=== PATIENT | female | born 1940 | race Caucasian/White ===

== ENCOUNTER 2018-10-14 23:04 | Inpatient (IN) | payer OTHER, BC ==
[2018-10-14] MEDS ORDERED: NS 1,000 ML IV ONE (23:07)
[2018-10-14] MEDS ORDERED: IOPAMIDOL (ISOVUE 370) 100 ML BTL IV ONE (23:12)
[2018-10-14] MEDS ORDERED: ALTEPLASE 100 MG/100 ML VIAL IV ONE ×2 (23:14→23:38)
--- NOTE | 2018-10-14 23:19 | EDPHY ---
H & P Time Seen by Provider: 10/14/18 23:17 HPI/ROS: HPI CHIEF COMPLAINT: Word finding difficulties, confusion, left-sided weakness onset 7:30 p.m. It is now 11:15 p.m. HISTORY OF PRESENT ILLNESS: This is a very pleasant 77-year-old female she arrives to the emergency room with family by private vehicle she presents emergency room with word-finding difficulties, confusion and left-sided weakness. This started approximately 730 tonight where they noticed at dinner she was having hard time picking up her fork and knocked her glass of wine over. She seemed confused and had word-finding difficulties. They became concerned and brought her to the emergency room at 11:15 a.m. At night. She arrives to ER room 2. Upon arrival I did seeing Greet her she has left- sided weakness compared to the right side, additionally word-finding difficulty , and appears to be looking to the right. She has noted be hypertensive upon arrival. and daughter at bedside who brought her in. She is not on any blood thinners. Stroke alert has been activated. I have asked for tPA to be mixed. Past Medical History: Hypertension, hyperlipidemia, polymyalgia Past Surgical History: No recent surgery Social History: Lives in [place] visiting her daughter here. at bedside. Family History: Noncontributory ROS REVIEW OF SYSTEMS: 10 Systems were reviewed and negative with the exception of the elements mentioned in the history of present illness. Exam Constitutional nontoxic, triage nursing summary reviewed, vital signs reviewed , awake/alert. Eyes normal conjunctivae and sclera, EOMI, PERRLA. HENT normal inspection, atraumatic, moist mucus membranes, no epistaxis, neck supple/ no meningismus, no raccoon eyes. Respiratory clear to auscultation bilaterally, normal breath sounds, no respiratory distress, no wheezing. Cardiovascular rate normal, regular rhythm, no murmur, no edema, distal pulses normal. Gastrointestinal soft, non-tender, no rebound, no guarding, normal bowel sounds, no distension, no pulsatile mass. Genitourinary no CVA tenderness. Musculoskeletal no midline vertebral tenderness, full range of motion, no calf swelling, no tenderness of extremities, no meningismus, good pulses, neurovascularly intact. Skin pink, warm, & dry, no rash, skin atraumatic. Neurologic left-sided weakness left upper extremity weakness left lower extremity weakness, word finding difficulty, confusion Psychiatric normal mood/affect. Heme/Lymph/Immune no lymphadenopathy. Differential Diagnosis: Includes but is not limited to in a particular order ischemic CVA, intracranial bleed, ACS, hypertensive emergency Medical Decision Making: Plan for this patient she will go directly to CT for CT head without contrast and CT angiogram head and neck for stroke. Stroke alert. Mix tPA. Re-evaluation: NIHSS stroke scale upon arrival 8. NIH Stroke Scale/Score (NIHSS) from [employer] on 10/14/2018 All calculations should be rechecked by clinician prior to use RESULT SUMMARY: 8 points NIH Stroke Scale INPUTS: 1A: Level of consciousness > 0 = Alert; keenly responsive 1B: Ask month and age > 2 = 0 questions right 1C: 'Blink eyes' & 'squeeze hands' > 0 = Performs both tasks 2: Horizontal extraocular movements > 0 = Normal 3: Visual hong > 0 = No visual loss 4: Facial palsy > 0 = Normal symmetry 5A: Left arm motor drift > 2 = Drift, hits bed 5B: Right arm motor drift > 0 = No drift for 10 seconds 6A: Left leg motor drift > 2 = Drift, hits bed 6B: Right leg motor drift > 0 = No drift for 5 seconds 7: Limb Ataxia > 0 = No ataxia 8: Sensation > 0 = Normal; no sensory loss 9: Language/aphasia > 1 = Mild-moderate aphasia: some obvious changes, without significant limitation 10: Dysarthria > 1 = Mild-moderate dysarthria: slurring but can be understood 11: Extinction/inattention > 0 = No abnormality CT scan head without contrast called to me by [facility] negative for acute bleed negative for acute stroke. 2338: Patient is back from CT. The CT scan head without contrast shows no evidence of blood. Neurology Iraj Hong Dr.. Has consult and discussed the case with the patient. As well as the and daughter at bedside. Recommends giving IV tPA. The patient's blood pressure noted to be high. I have ordered 10 mg IV hydralazine additionally will give nicardipine a blood pressure stays high. Current blood pressure 189/102. After long discussion with Neurology with Isreal Merino, as well as the , patient, daughter at bedside we have all agreed that the patient will get tPA. They understand the risk of tPA including bleeding. They are comfortable this. CT angiogram head and neck called to me negative for large vessel occlusion by Dr. Pires. EKG interpretation by me on record in [employer] system. Impression time of EKG 2344, sinus tach 107 without any signs of acute ischemia no ST elevation no ST depression no T-wave abnormalities. Hospitalist service consult Dr. Barrera. Blood pressure currently 174/93. Critical Care: Total Critical Care Time Spent Managing this Patient: 85 Minutes. This time was spent Exclusively with this patient. This Care was exclusive of procedures. The Organ System/life at risk was CVA neurological This Patient was in Critical Condition because CVA, left-sided weakness, confusion, word finding difficulty status post tPA. Source: Patient, Family Constitutional: Initial Vital Signs Temperature (C) 36.7 C 10/14/18 23:15 Heart Rate 108 H 10/14/18 23:15 Respiratory Rate 20 10/14/18 23:15 Blood Pressure 195/118 H 10/14/18 23:15 O2 Sat (%) 93 10/14/18 23:15 O2 Delivery Mode Room Air O2 (L/minute) 2 Allergies/Adverse Reactions: No Known Allergies Allergy (Verified 10/15/18 09:19) Home Medications: Medication Instructions Recorded Atorvastatin Calcium [Lipitor 20 20 mg PO DAILY 10/14/18 mg (*)] Gabapentin [Neurontin 300 MG (*)] 900 mg PO HS 10/14/18 Hydrochlorothiazide [HCTZ (*)] 12.5 mg PO DAILY 10/14/18 Losartan Potassium 100 mg PO DAILY 10/14/18 glipiZIDE XL [Glucotrol Xl 2.5 mg 2.5 mg PO BID 10/14/18 (*)] metFORMIN HCL [Metformin HCl ER] 500 mg PO QID 10/14/18 C/E/Zn/Cu/OM3/DHA/EPA/LUT/ZEAX 1 each PO DAILY 10/15/18 [Preservision Areds 2 Softgel] Cholecalciferol Vit D3 [Vitamin D3 1,000 units PO DAILY 10/15/18 (*)] Estring 1 each VG Q90D 10/15/18 Famotidine [Pepcid 20 MG (*)] 20 mg PO DAILY PRN 10/15/18 Naproxen Sodium [Aleve 220 MG (*)] 220 mg PO BID PRN 10/15/18 Medical Decision Making - Data Points Laboratory Results: Laboratory Results 10/14/18 23:15 10/14/18 23:15 Medications Given: Acetaminophen (Tylenol) 650 mg PO Q4HRS PRN PRN Reason: Pain, Mild/Fever, Can Take PO Stop: 04/13/19 00:46 Last Admin: 10/15/18 14:53 Dose: 650 mg Nicardipine/Sodium Chloride (Cardene 0.1 Mg/Ml (Premix)) 200 mls @ 0 mls/hr IV CONT MIC; Titrate PRN Reason: Protocol Stop: 04/13/19 00:59 Last Admin: 10/15/18 02:11 Dose: 200 mls Insulin Human Lispro (Humalog Lispro) 0 unit SC TIDMEAL MIC PRN Reason: Protocol Stop: 04/13/19 17:59 Last Admin: 10/15/18 17:37 Dose: 2 units Discontinued Medications Alteplase, Recombinant (Activase) 51.192 mg 0.81 mg/kg (51.192 mg) IV ONCE ONE PRN Reason: Protocol Stop: 10/14/18 23:39 Last Admin: 10/14/18 23:45 Dose: 51.192 mg Alteplase, Recombinant (Activase) 5.688 mg 0.09 mg/kg (5.688 mg) IV ONCE ONE PRN Reason: Protocol Stop: 10/14/18 23:39 Last Admin: 10/14/18 23:44 Dose: 5.688 mg Fentanyl (Sublimaze) 25 mcg IVP EDNOW ONE Stop: 10/15/18 00:32 Last Admin: 10/15/18 02:40 Dose: 25 mcg Hydralazine HCl (Apresoline) 10 mg IVP EDNOW ONE Stop: 10/14/18 23:38 Last Admin: 10/14/18 23:48 Dose: 10 mg Sodium Chloride (Ns) 1,000 mls @ 0 mls/hr IV ONCE ONE; Wide Open PRN Reason: Protocol Stop: 10/14/18 23:08 Last Admin: 10/14/18 23:50 Dose: 1,000 mls Nicardipine/Sodium Chloride (Cardene 0.1 Mg/Ml (Premix)) 200 mls @ 0 mls/hr IV CONT MIC; Titrate PRN Reason: Protocol Stop: 04/12/19 23:44 Last Admin: 10/14/18 23:48 Dose: 200 mls Point of Care Test Results: Chemistry 10/14/18 23:21 POC Sodium 141 mEq/L mEq/L (135-145) POC Potassium 4.4 mEq/L mEq/L (3.3-5.0) POC Chloride 103 mEq/L mEq/L (97-110) POC BUN 23 mg/dL mg/dL (7-23) POC Creatinine 1.1 mg/dL H mg/dL (0.6-1.0) POC Glucose 158 mg/dL H mg/dL (70-100) ISTAT H&H 10/14/18 23:21 POC Hgb 11.2 gm/dL L gm/dL (12.6-16.3) POC Hct 33 % L % (38-47) Departure - Departure Disposition: [facility] Inpatient Acute Clinical Impression: CVA (cerebral vascular accident) Qualifiers: CVA mechanism: unspecified Qualified Code(s): I63.9 - Cerebral infarction, unspecified Condition: Critical
[2018-10-14 23:24] LABS: PLATELET COUNT 542 10^3/uL (150-400)
[2018-10-14 23:32] LABS: INR 0.92 (0.83-1.16); PROTIME(PATIENT) 12.6 SEC (12.0-15.0)
[2018-10-14] MEDS ORDERED: hydrALAZINE 20 MG/ML VIAL ONE (23:35)
[2018-10-14] MEDS ORDERED: hydrALAZINE 20 MG/ML VIAL IVP ONE (23:37)
[2018-10-14] MEDS ORDERED: ALTEPLASE 1 MG/ML SYR IV ONE (23:38)
[2018-10-14] MEDS ORDERED: niCARdipine/NACL 200 ML IV SCH (23:45)
[2018-10-15] MEDS ORDERED: fentaNYL 100 MCG/2 ML INJ IVP ONE (00:31)
[2018-10-15] MEDS ORDERED: fentaNYL 100 MCG/2 ML INJ ONE (00:32)
[2018-10-15] MEDS ORDERED: ONDANSETRON DISINTEGRATING 4 MG TAB PO PRN (00:47)
[2018-10-15] MEDS ORDERED: ONDANSETRON 4 MG/2 ML VIAL IVP PRN (00:47)
[2018-10-15] MEDS ORDERED: ACETAMINOPHEN 325 MG TAB PO PRN (00:47)
[2018-10-15] MEDS ORDERED: niCARdipine/NACL 200 ML IV SCH (01:00)
[2018-10-15] MEDS ORDERED: NS 1,000 ML IV SCH (01:00)
--- NOTE | 2018-10-15 06:11 | GHP ---
DATE OF ADMISSION: 10/14/2018 PRIMARY CARE PHYSICIAN: Out of state in [place]. SOURCE: Patient currently has aphasia, she is quite fatigued, and declines to answer questions. Her and daughter at bedside supplement details. EMR was reviewed and case discussed with ED provider. CHIEF COMPLAINT: Left-sided weakness and aphasia. HISTORY OF PRESENT ILLNESS: This is a pleasant 77-year-old female with past medical history significant for polymyalgia rheumatica, not currently on chronic steroid therapy, diabetes, noninsulin-dependent, and hypertension, who presents to the emergency department today with her and daughter several hours after patient began to exhibit some clumsiness on the left side. The patient was at dinner at approximately 7:30 p.m., when it was noted that she was dropping her wine glass and having some mild weakness on the left side. They returned home from dinner. They returned home to the [facility] where they are staying while they are visiting their daughter, and the patient was trying to act her to change the batteries out of her headphones, but she was not able to verbalize what she needed. The patient appeared to not be able to find the words per the . He called their primary care provider in [place], and they advised them to go to the emergency department. Stroke alert was called overhead and patient was noted to have some left-sided deficits and aphasia. [facility] was consulted and after discussion with family, was offered tPA. Risks and benefits were reviewed, and patient and the family agreed. The patient also was noted to have elevated blood pressure upon arrival of 195/118 up to a max of 222/115, with a heart rate in the 100s. She was given a dose of hydralazine with improvement in blood pressure and subsequently placed on nicardipine drip. Stat CT, CTA of head and neck were negative for any evidence of acute bleed, edema, or arterial occlusion. The patient did receive tPA and transferred to the ICU where I evaluated the patient after she just returned from a stat CT due to acute worsening of her left-sided weakness and new facial drooping. Patient with increasing anxiety and still continues to have aphasia. She is still oriented to just her name, with difficulties expressing additional answers to questions. reports that normally patient, due to her polymyalgia, will have increasing fatigue over the course of the day and particularly in the evening. The patient has been intermittently falling asleep during my interview, and he states that this is normal for her. She continues to have some left-sided weakness. She initially refused to allow me to do a basic physical exam, but was subsequently agreeable. The patient is endorsing some chills, but has not had any fever. REVIEW OF SYSTEMS: Limited due to patient's aphasia, but per family, no other symptoms or complaints reported to them by the patient, except as noted above in HPI. HOME MEDICATIONS: As per EMR, metformin, losartan, hydrochlorothiazide, glipizide, gabapentin, atorvastatin. PAST MEDICAL HISTORY: Significant for: 1. Diabetes type 2, treated with oral medications metformin and glipizide. 2. Chronic pain due to polymyalgia rheumatica. Patient is not currently on any chronic daily steroids. She was previously, but this was tapered off some time ago. 3. Hyperlipidemia. Patient is on atorvastatin. PAST SURGICAL HISTORY: Family denies. FAMILY HISTORY: Reports that patient's mother suddenly in her early 70s, unclear if this was due to stroke or [place]. SOCIAL HISTORY: Patient lives with her in [place], [place]. They are here visiting their daughter in [place]. Normally, patient is able to complete her ADLs independently. Patient without any recent history of tobacco, but she did smoke many years ago. She drinks a glass of wine a week. She uses CBD cream topically, but no known marijuana use. CODE STATUS: Full. PHYSICAL EXAM: VITAL SIGNS: Upon arrival to the emergency department, blood pressure 195/118, increased to 222/115, heart rate 100s initially in the ED, increased up to 120s, worse with movement while I am at bedside up to 122, sinus tachycardia, respiratory rate 16, O2 saturation 93% on room air, with temperature of 36.7. CURRENT SET OF VITAL SIGNS: Blood pressure 140/88, heart rate 119, respiratory rate 18, O2 sat is 100% on 2 L by nasal cannula. GENERAL : No acute distress. Peasant, elderly lady is lying on bed asleep. She does awaken and open her eyes to name. Exam is slightly limited due to patient with significant fatigue, but she does make attempts to participate in the exam. is at bedside as well as daughter. HEAD: Normocephalic, atraumatic. EYES: Extraocular muscle testing is limited due to patient's cooperation. She closes her eyes when I attempt to evaluate with light. She does not appear to have a gaze deviation, but again exam is limited. ENT: Mucous membranes appear moist. Dentition in fair condition. No nasal discharge. NECK: Supple. Trachea midline. CV: Tachycardic, regular. No murmurs, rubs, or gallops appreciated. RESPIRATORY: Lungs are clear to auscultation bilaterally. No wheezes, rales, or rhonchi. Unlabored breathing. ABDOMEN: Obese, soft, nontender to palpation. No rebound, guarding, or masses appreciated. Hypoactive bowel sounds. : Patient with some bladder discomfort and full bladder. She is complaining of urinary retention. EXTREMITIES: Patient without any cyanosis, clubbing, or edema appreciated. She is able to move her upper and lower extremities independently; however, when prompted for the neurologic exam, patient is not able to real property appraiser; however, she does flex her arm independently when she is trying to go to sleep. She is able to move her lower extremities, but she does complain of diffuse joint pain with any kind of movement. NEUROLOGIC: Patient with a faint left facial droop and nasolabial fold flattening. No tongue deviation. Left-sided weakness is present, but again exam is slightly made difficult due to patient's ability to cooperate. She does not grasp with her left fingers or thumb, or move her left extremity. When prompted; however, when she goes to turn, she is able to flex her left arm at the elbow. She has notable aphasia. With this in consideration , she is oriented to her name. PSYCH: Patient is quite anxious, particularly with any movement. She complains of diffuse joint pain. She is quite fatigued and intermittently cooperative as noted above. LABORATORY STUDIES: 1. WBC is 11.2, H and H are 9.9 and 31.2, MCV of 81.0, platelet count is 542. No bands. PT 12.6, INR 0.92. 2. Sodium is 138, potassium 4.7, chloride 104, CO2 is 23, anion gap 11, BUN is 25, creatinine is 1.1, GFR of 48, glucose 156, calcium is 9.5. A1c and lipid panel pending. Point of care troponin is negative. 3. EKG, reviewed myself, showing sinus tachycardia, borderline ST depression in the anterolateral leads. QTc is 503. Patient with small nonpathologic Q- waves in multiple leads, inferolateral leads. 4. CT head/CT head and neck negative for any acute findings. Patient with a torturous cervical vasculature, but no flow-limiting stenosis. 5. Repeat CT head was obtained shortly after patient arrived to the ICU due to a new facial droop and more prominent left-sided extremity weakness. Discussed with Dr. Chaney, Radiology, and CT head is reported to be normal. ASSESSMENT AND PLAN: Pleasant 77-year-old female with a past medical history significant for hypertension, diabetes mellitus 2, hyperlipidemia, polymyalgia rheumatica, who presents to the emergency department today with several hours following onset of left-sided weakness and new aphasia. 1. Acute cerebrovascular accident, status post tPA. Patient without significant improvement in her symptoms at this time. She did have a mild worsening of her symptoms, but she was also increasingly fatigued and just received fentanyl. [facility] was consulted from the emergency department. Patient did receive tPA. She has been admitted to the ICU for close monitoring of her symptoms post tPA. Stroke protocol is in place. She continues to have some aphasia and left lower facial drooping. She did pass a bedside swallow in the ER, but did not have at that time any left facial drooping, so we will make patient n.p.o. while awaiting Speech Therapy evaluation. Inpatient Neurology consulted for additional recommendations. We will obtain an MRI, without contrast, in the morning. The patient's daughter and were updated on the plan for tonight. plans to stay in the room this evening. 2. Aphasia. 3. Left-sided weakness. Plan as noted above. 4. Accelerated hypertension. The patient received a dose of hydralazine. Subsequently, on nicardipine drip which will be continued to maintain blood pressures of less than 180. Initially, and daughter were unaware of patient's diagnosis of hypertension. Review of her home medications reveals that she is on several antihypertensives. 5. Renal insufficiency. It is unclear at this time if this is patient's baseline or if this is new. The patient will receive some gentle IV fluid hydration once her symptoms of urinary retention have improved. 6. Urinary retention. Suspect related to patient receiving low dose of fentanyl in the emergency department. She has been able to void small amounts, but has increasing residual on bladder scan. Patient without a Martinez catheter at this time, status post tPA. We will try to utilize gravity. Have patient sit up forward on bed to try to void on a bed lr. She is on bedrest pending 24 hours following tPA administration. 7. Anemia. Baseline again is unknown. The patient without any evidence of active bleeding at this time. Vital signs are stable as far as blood pressure. We will continue to monitor her H and H. Type and screen has been ordered. 8. Chronic medical issues. a.. Diabetes mellitus 2. Blood sugar is minimally elevated. We will continue to monitor. She is not on insulin at baseline. Holding metformin in setting of kidney insufficiency and glipizide in setting of n.p.o. status. Checking A1c. b. Hyperlipidemia. Checking a lipid panel. c. Polymyalgia rheumatica, not currently on chronic steroid therapy. Supportive care at this time. In setting of acute kidney injury, avoid NSAIDs. Given her aphasia and increasing fatigue, hold additional narcotics. She normally takes gabapentin due to somnolence. Also, we will hold gabapentin. 9. Fluid, electrolyte, nutrition. If patient's voiding improves and she is able to finally empty her bladder, consider IV fluid hydration while she is n.p.o. Electrolytes at this time do not require replacement. Patient is n.p.o. pending Speech Therapy evaluation. 10. Prophylaxis. SCDs. Status post tPA. 11. Core status is full. Patient's reports that they have advance directive. DISPOSITION: Patient admitted to inpatient status on the ICU floor for close neurologic and cardiac monitoring, status post tPA. Anticipate greater than 2-midnight stay. /[id number]/MODL MTDD
--- NOTE | 2018-10-15 09:15 | HOSPPROG ---
Hospitalist Progress Note Assessment/Plan: #Acute CVA: s/p t-pA -MRI pending. Neuro consulted. -maintain BP<180/110 with t-pA -speech, PT/OT, echo, telemetry -Repeat CTH in 24hr, start ASA 325mg if no hemorrhage #Hypertensive emergency: cardene gtt #EVELIN: unclear #Polymyalgia rheumatica: not on steroids. #DM: SSI. Holding orals #Normocytic anemia: monitor closely with t-pA #Diet: regular #DVT ppx: SCDS #Disp: ICU admission for serial neuro checks, repeat imaging Subjective: urinary frequency this morning Objective: Vital Signs Temp Pulse Resp BP Pulse Ox 37.1 C 98 20 132/65 H 99 10/15/18 09:00 10/15/18 09:00 10/15/18 09:00 10/15/18 09:00 10/15/18 09:00 10/14/18 10/15/18 10/16/18 05:59 05:59 05:59 Intake Total 411 Output Total 1410 200 Balance -999 -200 PT 12.6 SEC (12.0-15.0) 10/14/18 23:15 INR 0.92 (0.83-1.16) 10/14/18 23:15 - Time Spent With Patient Time Spent with Patient: greater than 35 minutes Time Spent with Patient: Greater than 35 minutes spent on this patients care, greater than 50% of time spent counseling, educating, and coordinating care regarding the above mentioned plan. - Physical Exam Constitutional: no apparent distress Eyes: PERRL Ears, Nose, Mouth, Throat: moist mucous membranes Cardiovascular: regular rate and rhythym Respiratory: no respiratory distress Genitourinary: No zeng in urethra Skin: warm Musculoskeletal: full muscle strength Neurologic: AAOx3, CN II-XII Intact, No weakness Psychiatric: interacting appropriately ICD10 Worksheet Patient Problems: Problems Problem Status Onset CVA (cerebral vascular accident) Acute - ICD10 Problem Qualifiers (1) CVA (cerebral vascular accident)
--- NOTE | 2018-10-15 10:27 | ECHO ---
[email or web address] [address] Main: [phone] Fax: [email or web address] Echocardiogram Name: LUCINA WRAY MR#: [id number] Study Date: 10/15/2018 Study Time: 07:22 AM Date of : 1940 Age: 77 year(s) Height: 147.3 cm (58 in.) Weight: 63.05 kg (139 lb.) BSA: 1.56 m2 Gender: Female Examination: Echo Indication: Stroke/hx A fib/HTN Image Quality: Contrast: Requested by: Emely Barrera BP: 129 mmHg/74 mmHg Heart Rate: Rhythm: Indication: Stroke/hx A fib/HTN Procedure Staff Paper Plate Machine Tender: Judy Gonsalves RUST Reading Physician: Zaki Umana MD Requesting Provider: Conclusions: Mild concentric LV hypertrophy. Global hypercontractility of the left ventricle. The ejection fraction is estimated to be 75-80 %. An agitated saline study was performed and was negative for intracardiac shunting. Moderate mitral annular calcification. Measurements: Chambers Valvular Assessment AV/MV Valvular Assessment TV/PV Normal Normal Normal Name Value Range Name Value Range Name Value Range Ao Chantell (MM): 3.4 cm (2.2 cm-3.7 AV meanP mmHg ( - ) cm) MV E Vmax: 0.92 m/s ( - ) IVSd (2D): 1.0 cm (0.6 cm-1.1 MV A Vmax: 1.47 m/s ( - ) cm) MV E/A: 0.63 ( - ) LVDd (2D): 4.0 cm (3.9 cm-5.3 cm) LVDs (2D): 2.0 cm (2.1 cm-4 cm) LVPWd (2D): 0.7 cm ( - ) LVEF (MOD4): 82 % (>=55 %) EF Range: 75-80 % Continued Measurements: Chambers Valvular Assessment AV/MV Name Value Name Value LADs Lon.8 cm MV E' Septal: 0.07 m/s LA Area: 11.6 cm2 MV E/E' Septal: 13.70 MV E/E' Lateral: 11.60 Patient: LUCINA WRAY Study Date: 10/15/2018 Page 1 of 2 07:22 AM Additional Vessels Name Value Ao Ascendin.7 cm Findings: Left Ventricle: Normal size left ventricle. Mild concentric LV hypertrophy. Global hypercontractility of the left ventricle. The ejection fraction is estimated to be 75-80 %. No regional wall motion abnormality. Normal diastolic LV function. Mild LVOT gradient (16mmHG).. Right Ventricle: Normal size right ventricle. Left Atrium: The left atrium is normal in size. An agitated saline study was performed and was negative for intracardiac shunting. Right Atrium: The right atrium is normal in size. Mitral Valve: Moderate mitral annular calcification. E/a wave reversal. . Aortic Valve: Mild aortic cusp calcification is noted. Tricuspid Valve: The tricuspid valve is normal in appearance and function. Pulmonic Valve: Pulmonary valve not well visualized. Aorta: The aorta is normal. Pericardium: No pericardial effusion. (No Signature Object) Patient: LUCINA WRAY Study Date: 10/15/2018 Page 2 of 2 07:22 AM [id number]
--- NOTE | 2018-10-15 12:19 | PDMN ---
Medical Necessity Medical necessity: Pt meets IP criteria as of 10/15/2018 per and MCG M-83 ( Stroke: Ischemic); est los > 2 mn for ongoing tx and management of acute stroke with stroke alert activation and TPA administration as well as renal insufficiency and HTN; requiring ICU care, neurology consultation, therapies, IVP medications for BP control, and management of chronic conditions including DM II, anemia, and polymalagia rheumatic.
--- NOTE | 2018-10-15 13:16 | NEUROPROG ---
Assessment: [id number] - Neurology Consult: - CC: Possible CVA - HPI: Pts daughter reported the patient developed aphasia and left sided weakness on 10/14/18. She presented to [facility] ER and was given IV TPA due to concern for acute stroke. Head CT and CTA head/neck unremarkable. Pt admitted to ICU. She did have some worsening of left sided weakness in ICU so STAT head CT obtained which showed no acute bleed. I initially saw the patient on 10/15/18. She was feeling much better but was still having word finding problems (did not know how to say month or know location). I will obtain brain MRI , TTE, 24 hour telemetry, and 24 hour post-TPA head CT. - PMHx: polymyalgia rheumatica, DM2, HLD, HTN - SHx: lives in [place] FHx: mother - ROS: Pt denied acute fever, total vision loss, active severe chest pain, respiratory failure, total body severe rash, total bowel/bladder incontinence, psychosis, active seizures, or active bleeding - O: VS reviewed General: Alert Eyes: Fundoscopic exam not able to visualize optic disks CV: Heart RRR, no murmur, no carotid bruit Lungs: Clear to auscultation bilaterally, no rhonchi or rales Neuro: - Mental: . Oriented x person but not date place/date . concentration appears normal . speech fluency/comprehension slightly reduced . memory appears normal . fund of knowledge appear intact - Cranial Nerves: . II: PERRL, VFFTC . III/IV/: EOMI, no nystagmus, normal smooth pursuits, no Ptosis . V: facial sensation intact to LT . VII: face symmetric to eye closure and smile . VIII: hearing intact to conversation . IX/X: uvula raises symmetrically . XI: SCM 5/5 B/L strength . XII: tongue protrudes midline w/nl strength - Motor: . Tone: normal tone in all 4 extremity . Strength: no pronator drift, strength 5/5 throughout (B/L delt, bic, tri, hand merit system director, hf/he, df/pf) - Reflexes: B/L bic/BR/patella 2/4 - Sensory: all 4 extremity intact to light touch - Coord: [id number] wnl, PERRI wnl, [id number] wnl - Gait: deferred - NIH SS 1 (did not now date) - Labs: 10/14/18- Na 141 - Rads: 10/14/18- Head CT: normal (I personally visualized the images on 10/15/18) 10/14/18- Head/Neck CTA: no significant findings - Assessment: 1. Probable Stroke causing left sided weakness and aphasia on 10/14/18, pt status post-TPA - Plan: - Head CT 24 hours after getting IV TPA to ensure no hemorrhagic conversion, if no bleed seen on this study then begin aspirin 325 mg qd for stroke prevention (change to aspirin 81 mg qd on hospital discharge) - Brain MRI wo - TTE - 24 hour of telemetry - Labs: LDL, H1AC - Blood pressure < 180/110 - PT/OT/Speech to determine rehab needs - F/U in neurology clinic 1-5 weeks after hospital discharge Objective: Vital Signs Temp Pulse Resp BP Pulse Ox 37.1 C 108 H 17 144/77 H 95 10/15/18 09:00 10/15/18 13:00 10/15/18 13:00 10/15/18 13:00 10/15/18 13:00 10/14/18 10/15/18 10/16/18 05:59 05:59 05:59 Intake Total 411 Output Total 1410 810 Balance -999 -810 PT 12.6 SEC (12.0-15.0) 10/14/18 23:15 INR 0.92 (0.83-1.16) 10/14/18 23:15 Allergies/Adverse Reactions: No Known Allergies Allergy (Verified 10/15/18 09:19)
[2018-10-15] MEDS ORDERED: FAMOTIDINE 20 MG TAB PO PRN (14:05)
[2018-10-15] MEDS ORDERED: D50W 25 GM/50 ML SYR IVP PRN (14:06)
--- NOTE | 2018-10-15 16:22 | ASMTCMCOM ---
CM Note CM Note Notes: 77yo female admitted for L sided weakness, Aphasia, CVA. She has a Hx of Polymalgia rheumatica, DM, HTN. Patient is visiting from [place] where she lives with her . Getting TPA tx's. Therapies to eval. CM to follow. Date Signed: 10/15/2018 04:21 PM Electronically Signed By:Savannah Ventura LCSW
[2018-10-15] MEDS: INSULIN LISPRO 100 UNIT/ML SC SCH (17:37)
[2018-10-15] MEDS ORDERED: GABAPENTIN 300 MG CAP PO SCH (21:00)
[2018-10-16] MEDS: INSULIN LISPRO 100 UNIT/ML SC SCH ×2 (07:34→11:32)
[2018-10-16] MEDS ORDERED: CHOLECALCIFEROL VIT D3 1,000 UNITS TAB PO SCH (09:00)
[2018-10-16] MEDS ORDERED: ATORVASTATIN CALCIUM 20 MG TAB PO SCH (09:00)
[2018-10-16] MEDS ORDERED: PRESERVISION AREDS2 FORMULA EYE VIT 1 EACH PO SCH (09:00)
[2018-10-16] MEDS ORDERED: LOSARTAN POTASSIUM 50 MG TAB PO SCH (10:45)
[2018-10-16] MEDS ORDERED: HYDROCHLOROTHIAZIDE 12.5 MG CAP PO SCH (10:45)
[2018-10-16 11:28] VITALS: BP 152/79
--- NOTE | 2018-10-16 12:24 | NEUROPROG ---
Assessment: [id number] - Neurology Consult: - CC: F/U for possible TIA - Narrative Summary: Pts daughter reported the patient developed aphasia and left sided weakness on 10/14/18. She presented to [facility] ER and was given IV TPA due to concern for acute stroke. Head CT and CTA head/neck unremarkable. Pt admitted to ICU. She did have some worsening of left sided weakness in ICU so STAT head CT obtained which showed no acute bleed. I initially saw the patient on 10/15/18. She was feeling much better but was still having word finding problems (did not know how to say month or know location). - HPI: F/U 10/16/18. Brain MRI showed no acute stroke. Head CT showed no acute bleed. LDL 45 and H1AC 7.0. TTE and 24 hour telemetry showed no cardio-embolic source. - PMHx: polymyalgia rheumatica, DM2, HLD, HTN - SHx: lives in [place] FHx: mother - ROS: Pt denied acute fever, total vision loss, active severe chest pain, respiratory failure, total body severe rash, total bowel/bladder incontinence, psychosis, active seizures, or active bleeding - Labs: 10/14/18- H1AC 7.0 10/16/18- LDL 45L - Rads: 10/14/18- Head CT: normal 10/14/18- Head/Neck CTA: no significant findings 10/15/18- Brain MRI wo: Mild periventricular and deep hemispheric white matter change which is nonspecific and can be seen with small vessel ischemic change, gliosis from migraine or trauma, or postinfectious/ postinflammatory etiology. No evidence for acute infarct. 10/15/18- TTE: EF 75-80%, no cardiac thrombus reported 10/15/18- 24 hour telemetry: no afib noted 10/15/18- Head CT: no bleed noted - Assessment: 1. Left sided weakness and aphasia on 10/14/18, pt status post-TPA: Brain MRI on 10/15/18 showed no acute changes so it is unclear if the patient had a TIA or possibly an acute confusional state based on advanced age and medical conditions. TTE, 24 hour telemetry, CTA head/neck all unremarkable. Given uncertainty recommend treating patient as if she had a TIA. - Plan: - Begin aspirin 81 mg qd for stroke prevention - Work with PCM with goal of Blood pressure < 140/90, LDL < 70, and H1AC < 7.0 - PT/OT/Speech to determine rehab needs - F/U with PCM from [place] after hospital discharge - No further inpatient neurology work up needed, neurology will sign off - 35 min spent with patient, majority of time spent counseling on her symptoms and possible causes as well as management plan Objective: Vital Signs Temp Pulse Resp BP Pulse Ox 36.8 C 87 14 152/79 H 99 10/15/18 18:45 10/16/18 09:51 10/16/18 09:51 10/16/18 11:27 10/16/18 09:51 Laboratory Results 10/16/18 07:05 10/16/18 07:05 10/15/18 10/16/18 10/17/18 05:59 05:59 05:59 Intake Total 411 930 Output Total 1410 1825 Balance -999 -895 PT 12.6 SEC (12.0-15.0) 10/14/18 23:15 INR 0.92 (0.83-1.16) 10/14/18 23:15 Allergies/Adverse Reactions: No Known Allergies Allergy (Verified 10/15/18 09:19)
--- NOTE | 2018-10-16 13:17 | ASMTLACE ---
LACE Length of stay for Answers: 2 days current admission Acuity / Level of Answers: Yes Care: Did the patient have an inpatient admission? Comorbidities - select Answers: Diabetes (uncontrolled or all that apply controlled) Opioid dependence / Chronic pain Other Notes: HTN; HLD # of Emergency department Answers: 1-2 visits in the last 6 months Score: 12 Date Signed: 10/16/2018 01:16 PM Electronically Signed By:Esperanza Trevino RN
--- NOTE | 2018-10-16 13:18 | ASMTDCNOTE ---
Case Management Discharge Discharge Order Complete? Answers: Yes Patient to Obtain Answers: Independently Medications Transportation Arranged Answers: Family/Friends Family Notified Answers: Yes Discharge Comments Notes: Patient discharged with no needs. PT/OT/PART TIME RECEPTIONIST evaluated and cleared for home. Family to accompany her home. Date Signed: 10/16/2018 01:17 PM Electronically Signed By:Esperanza Trevino RN
--- NOTE | 2018-10-16 13:31 | GDS ---
DISCHARGE DIAGNOSES: 1. Transient ischemic attack versus acute confusional state. 2. Hypertensive urgency. 3. Diabetes. 4. Polymyalgia rheumatica. 5. Acute kidney injury. 6. Normocytic anemia. CONSULTATIONS: Neurology. HISTORY OF PRESENT ILLNESS: A 77-year-old female with hypertension and polymyalgia rheumatica, who i s visiting daughter here and presented with clumsiness on her left side. They were at dinner and not ed she was dropping her wine glass and having mild weakness on that side. They returned home and she was unable to verbalize what she wanted to say. In the ER, a stroke alert was called and the patien dionne was noted to have left-sided deficits and aphasia. [facility] was consulted and was treate d with tPA. HOSPITAL COURSE BY PROBLEM: 1. TIA versus acute confusional state: Patient with left-sided deficits, evaluated by Isreal Hoff and was treated with tPA. She is now with minimal deficits and maybe mild speech impairment. Negative e valuation included a CT head, CTA of the head and neck, echocardiogram, and telemetry. Brain MRI did not show acute stroke. There was no cardioembolic source. Start baby aspirin. She is already on a statin. Goal blood pressure is a systolic of less than 160. I recommend she check her blood pressu re 3 times a day and takes this log to her PCP. 2. Diabetes: Resume home medications. 3. Hypertensive urgency: Blood pressure greater than 220 at time of admission. States compliance w ith her medications. Resume her home losartan. She may need additional medications. Previously on Dyazide, but did not tolerate this. 4. Polymyalgia rheumatica: She is on gabapentin. 5. Hyperlipidemia: Statin. DISPOSITION: Patient is stable for discharge home with her and daughter. NEW MEDICATIONS: Aspirin 81 mg daily. FOLLOW UP: 1. Primary care physician. 2. Blood pressure log for additional medications. 3. Outpatient speech therapy. PHYSICAL EXAMINATION: VITAL SIGNS: Today, temperature is afebrile. Blood pressure is 152/79, heart rate is in 70s, respirations 16, 99% on room air. GENERAL: She is well appearing, no acute distres s. HEENT: PERRLA. Moist mucous membranes. CV: Regular rate and rhythm. No murmurs, gallops, or rubs. LUNGS: Clear. ABDOMEN: Soft, nontender, nondistended. Positive bowel sounds. : No Fole y. MUSCULOSKELETAL: 5/5 upper and lower. NEURO: Two through 12 intact. No facial droop. Normal s ensation to touch. PSYCH: Alert and oriented x3. TIME SPENT ON DISCHARGE: Greater than 30 minutes at bedside counseling patient and on follow up treatment, discussing case with Dr. Mead and Dr. Salazar. /[id number]/MODL
[2018-10-17] MEDS ORDERED: LOSARTAN POTASSIUM 50 MG TAB PO SCH (09:00)
[2018-10-17] MEDS ORDERED: HYDROCHLOROTHIAZIDE 12.5 MG CAP PO SCH (09:00)
--- NOTE | 2018-10-18 07:51 | CPEKG ---
Test Reason : OPEN Blood Pressure : / mmHG Vent. Rate : 109 BPM Atrial Rate : 109 BPM P-R Int : 153 ms QRS Dur : 079 ms QT Int : 373 ms P-R-T Axes : 056 027 024 degrees QTc Int : 503 ms Sinus tachycardia Borderline ST depression, anterolateral leads Prolonged QT interval Confirmed by Andrea Miranda ([id number]) on 10/18/2018 7:50:33 AM Referred By: Confirmed By:Andrea Miranda
== END 2018-10-16 13:26 | disposition home or self-care (01) | DRG 62 ==
LOC: F2N 10-15 00:51
PROVIDERS: ADMIT Family Medicine; ATTEND Family Medicine
DX: G45.9 Transient cerebral ischemic attack, unspecified (principal); R41.0 Disorientation, unspecified; N17.9 Acute kidney failure, unspecified; I16.0 Hypertensive urgency; M35.3 Polymyalgia rheumatica; E11.9 Type 2 diabetes mellitus without complications; E78.5 Hyperlipidemia, unspecified
CPT/HCPCS: 82435-PO; 82565-PO; 82947-PO; 84132-PO; 84295-PO; 84484-ER; 84520-PO; 85014-PO; 92523-GN; 92610-GN; 97161-GP; 97166-GO; G8996-GN-CH; G8997-GN-CH; G8998-GN-CH; G9159-GN-CK; G9160-GN-CI; J0360; J1815; J2997; J3010; Q9967